=== PATIENT | female | born 1990 | race Caucasian/White ===

== ENCOUNTER 2017-02-25 14:11 | Emergency (ER) | payer BC ==
[2017-02-25] MEDS: HYDROcodone/APAP 5/325MG 1 TAB TABLET PO (14:39)
== END 2017-02-25 17:09 | disposition home or self-care (01) ==
LOC: ER 14:11
DX: S86.812A Strain of other muscle(s) and tendon(s) at lower leg level, left leg, initial encounter (principal); M79.7 Fibromyalgia; Z88.2 Allergy status to sulfonamides; X58.XXXA Exposure to other specified factors, initial encounter; Y93.89 Activity, other specified; Y92.89 Other specified places as the place of occurrence of the external cause; Y99.8 Other external cause status
CPT/HCPCS: 93971; 99284